=== PATIENT | male | born 1945 | race Two or more races ===

== ENCOUNTER → 2016-12-14 | Day surgery (SDC) | payer MEDICARE, MEDICAID ==
--- NOTE | 2016-12-10 17:07 | Pre-Procedure Note/Attestation ---
Pre-Procedure Note/Attestation Complete Prior to Procedure Planned Procedure: bilateral Procedure Narrative: 1- Ptosis correction, upper lids 2- Entropion correction upper lids 3- Blepharoplasty, upper lids Indications for Procedure Pre-Operative Diagnosis: 1- Ptosis ,upper lids 2- Entropion, upper lids 3- Blepharochalasis and dermatochalasis upper lids Attestation I attest that I discussed the nature of the procedure; its benefits; risks and complications; and alternatives (and the risks and benefits of such alternatives ), prior to the procedure, with the patient (or the patient's legal retail customer service representative). I attest that, if there was a reasonable possibility of needing a blood transfusion, the patient (or the patient's legal retail customer service representative) was given the [facility] standardized written summary, pursuant to the Sloan Mckay Blood Safety Act ([place] Health and Safety Code # 1645, as amended). I attest that I re-evaluated the patient just prior to the surgery and that there has been no change in the patient's H&P, except as documented below: LENA DIEZ Dec 10, 2016 17:07
[2016-12-14] VITALS (11 sets, daily range): BP systolic 124–139; BP diastolic 64–89
[~2016-12-14] VITALS: Ht 185.4 cm; Wt 81.6 kg
[~2016-12-14] MED LIST: ASPIRIN81 MG ORAL; ATORVASTATIN CA20 MG ORAL; Akten 3.5% 1ml Btl BOTH EYES ONE; Bupivacaine 0.75% 30ml vial INJ ONE; DiphenhydrAMINE 50mg/ml Inj IVP PRN; DiphenhydrAMINE 50mg/ml Inj ONE; LOSARTAN POTASS50 MG ORAL; LR 1000ml 1,000 ML IVLG SCH; Labetalol 5mg/ml 20ml vial IV PRN; Lidocaine 2% 20mg/ml/Epi 0.005mg/ml 20ml vial ONE; METOPROLOL SUCC25 MG ORAL; Maxitrol Opth Oint 3.5gm BOTH EYES ONE; NS Irrig 1000ml ONE; Povidone-Iodine 5% opth solution ONE; Propofol 10mg/ml 20ml IV ONE; Sterile Water Irrig 1000ml IRRIG ONE
--- NOTE | 2016-12-14 09:37 | Anethesia Preoperative Eval ---
Anesthesia Pre-op PMH/ROS General Date of Evaluation: Dec 14, 2016 Anesthesiologist: David ASA Score: ASA 3 Mallampati Score Class I : Soft palate, uvula, fauces, pillars visible Class II: Soft palate, uvula, fauces visible Class III: Soft palate, base of uvula visible Class IV: Only hard plate visible Mallampati Classification: Class II Surgeon: Vladimir Diagnosis: Bilateral eyelid ptosis Surgical Procedure: Bilateral blepharoplasty Anesthesia History: none Social History: current smoker Family History: no anesthesia problems Allergies: Coded Allergies: No Known Allergies (Unverified , 03/05/16) Medications: see eMAR Past Medical History Cardiovascular: Reports: CAD, HTN, [place], other - HLD Pulmonary: Denies: COPD, SYLVIA, asthma, other Gastrointestinal/Genitourinary: Reports: GERD, Denies: CRI, ESRD, other Neurologic/Psychiatric: Denies: CVA, TIA, dementia, depression/anxiety, other Endocrine: Denies: DM, hypothyroidism, other, steroids HEENT: Denies: NIKOLAI (L), NIKOLAI (R), cataract (L), cataract (R), glaucoma, other Hematology/Immune: Denies: DVT, anemia, bleeding disorder, other Musculoskeletal/Integumentary: Denies: DDD, DJD, OA, RA, edema, other PSxH Narrative: Right THR, right cataract Anesthesia Pre-op Phys. Exam Physician Exam Last Vital Signs Date Time Temp Pulse Resp B/P Pulse Ox O2 Delivery O2 Flow Rate FiO2 12/14/16 08:52 97.3 61 18 139/80 98 Room Air Constitutional: NAD Cardiovascular: RRR Respiratory: CTA Airway Exam Mallampati Score: Class III MO: full ROM: full Anesthesia Pre-op A/P Labs see chart Studies Pre-op Studies: EKG - sr Risk Assessment & Plan Assessment: ASA III Plan: MAC Status Change Before Surgery: No Pre-Antibiotics Drug: N/A JI ALVAREZ M.D. Dec 14, 2016 09:37
--- NOTE | 2016-12-14 11:47 | Immediate Post-Op Evaluation ---
Immediate Post-Op Evalulation Immediate Post-Op Evalulation Procedure: Bilateral blepharoplasty Date of Evaluation: Dec 14, 2016 Time of Evaluation: 11:49 IV Fluids: 500 Blood Products: 0 Estimated Blood Loss: 0 Urinary Output: 0 Blood Pressure Systolic: 133 Blood Pressure Diastolic: 75 Pulse Rate: 55 Respiratory Rate: 16 O2 Sat by Pulse Oximetry: 98 Temperature (Fahrenheit): 97 Pain Score (1-10): 0 Nausea: No Vomiting: No Complications 0 Patient Status: awake, reacts, patent, none Hydration Status: adequate Drug: N/a JI ALVAREZ M.D. Dec 14, 2016 11:47
--- NOTE | 2016-12-14 11:49 | Brief Operative Note ---
Immediate Post Operative Note Operative Note Chief Complaint: Droopy eyelids, difficulty driving and reading Pre-op Diagnosis: 1- Ptosis ,upper lids 2- Entropion, upper lids 3- Blepharochalasis and dermatochalasis upper lids Procedure: 1- Ptosis correction, upper lids 2- Entropion correction, upper lids 3- Upper blepharoplasty, bilaterally Surgeon: Lena Gilbert MD. Associate Software Application Engineer: None Additional Surgeons: None Anesthesiologist: Dr. Hernandez Anesthesia: local, MAC Specimen: none Complications: none Condition: stable Estimated Blood Loss: minimal Drains: none Implant(s) used?: No LENA GILBERT Dec 14, 2016 11:49
--- NOTE | 2016-12-14 21:27 | Operative Note - Dictated ---
DATE OF OPERATION: 12/14/2016 FACILITY: [facility]. SURGEON: Mg Gilbert M.D. LAB INSTRUCTOR: None. ANESTHESIOLOGIST: Dr. Hernandez. Anesthesia: Monitored anesthesia care plus local anesthesia with lidocaine 2% with epinephrine 1:100,000 plus Marcaine 0.25%, 50:50. PREOPERATIVE DIAGNOSES: 1. Ptosis, upper lids. 2. Entropion, upper lids. 3. Dermatochalasis, upper lids. 4. Outer ptosis and dermatochalasis bilaterally. POSTOPERATIVE DIAGNOSES: 1. Ptosis, upper lids. 2. Entropion, upper lids. 3. Dermatochalasis, upper lids. 4. Outer ptosis and dermatochalasis bilaterally. SURGERY PERFORMED: 1. Ptosis correction, upper lids. 2. Entropion correction, upper lids. 3. Blepharoplasty, upper lids. INDICATIONS FOR SURGERY: The patient is a 72-year-old gentleman with history of hypertension, coronary artery disease, dyslipidemia, history of myocardial infarction and hypercholesterolemia. He has gastroesophageal reflux and osteoarthritis as well. He is taking medications including metoprolol, atorvastatin, losartan, and aspirin. He has had cataract surgery in both eyes and he is happy with the results. He is complaining of fat and complaining of blurry vision and difficulty driving because of upper lid droopiness. He is suffering from severe blepharochalasis, ptosis, entropion and dermatochalasis. This is a progressive dermatochalasis with skin disease, which resulting changes of corneal curvature, which can induce astigmatism with covering of visual axis, which is interruption for driving. The severity of the patient's dermatochalasis, ptosis, entropion and ectropion is clearly demonstrated from an enclosed photos and the patient's visual parks. The only solution for this patient is correction of all those disfigurement and anatomy changes with surgery. INFORMED CONSENT: The nature of the surgery, risks, benefits, and potential complications were all explained in detail to the patient in his language Farsi. He voiced understanding and accepted all the complications. The potential complications including, but not limited to bleeding, infection, corneal exposure, over correction, under correction, ecchymosis swelling of the face, hematoma, dry eye syndrome, loss of eyelashes, loss of eyebrows, inequality of both eyes, change in vision, even loss of vision and loss of the eye were explained in detail to the patient, who voiced understanding and accepted all the complications. Then, he signed the consent form, which is in the chart. DESCRIPTION OF SURGERY AND FINDINGS: Following that, the patient was taken to the operation room in a stable condition. Lidocaine gel 3.5% was applied to the conjunctiva of both eyes. Following that, the upper lids were marked with a marking pen 10 mm above the root of the eyelashes and 6 mm below the lower part of the eyebrows. About 20 mm of the skin was left for facilitation to facilitate the eye closure. IV sedation was given by the anesthesiologist, Dr. Hernandez. After adequate anesthesia and sedation had been achieved, the upper eyelids, eyebrows, and lower eyelids were all anesthetized 2% lidocaine with epinephrine and Marcaine. Following that, using a Bovie knife, the skin and subdermal tissue were dissected from the orbicularis oculi muscle and excised. A cuts were made into the orbicularis oculi muscle. Hemostasis was performed. Following that, the fat compartments were sculptured conservatively. Following that, the levator palpebrae superioris muscle was dissected to the aponeurosis of the muscle. The aponeurosis of the muscle was tacked 6 mm and stitched with 6-0 Vicryl and the sutures were trimmed. Following that, a wedge groove was made 3 mm above the root of the upper eyelashes. Following that, the tarsal plate was grooved. The tarsal material seen inside the groove was excised. The lips of the groove was stitched with 6-0 Vicryl and the eyelid border was rotated upward and lashes were turned from downward to upward. Following that, the orbicularis oculi muscle was stitched. Following that, the skin was stitched with 6-0 plain gut. The patient tolerated the surgery without complications. The bleeding was minimal. Following the, the patient was transferred to the recovery room. In the recovery room, cold compress was applied to the area. The wound was checked for leakage or bleeding. There was no bleeding. Postoperative orders and directions were given to the patient. The patient will be discharged home upon stabilization. The patient will be followed in my office tomorrow morning. Mg Gilbert M.D. DR: WENDY JOB#: [id number] CC:
[2016-12-16 07:11] VITALS: BP 128/89
--- NOTE | 2016-12-16 07:11 | 48 Hour Post Anesthesia Eval ---
Post Anesthesia Evaluation Procedure: Bilateral blepharoplasty Date of Evaluation: Dec 14, 2016 Time of Evaluation: 13:15 Blood Pressure Systolic: 128 0: 89 Pulse Rate: 58 Respiratory Rate: 18 Temperature (Fahrenheit): 97.7 O2 Sat by Pulse Oximetry: 97 Airway: patent Nausea: No Vomiting: No Pain Intensity: 0 Hydration Status: adequate Cardiopulmonary Status: at baseline Mental Status/LOC: patient returned to baseline Post-Anesthesia Complications: 0 Follow-up care needed: ready to discharge JI ALVAREZ M.D. Dec 16, 2016 07:11
== END | disposition home or self-care (01) ==
LOC: SUR 08:20
DX: H02.403 Unspecified ptosis of bilateral eyelids (principal); H02.034 Senile entropion of left upper eyelid; H02.031 Senile entropion of right upper eyelid; H02.834 Dermatochalasis of left upper eyelid; H02.831 Dermatochalasis of right upper eyelid; H02.34 Blepharochalasis left upper eyelid; H02.31 Blepharochalasis right upper eyelid; I25.10 Atherosclerotic heart disease of native coronary artery without angina pectoris; I25.2 Old myocardial infarction; I10 Essential (primary) hypertension; E78.5 Hyperlipidemia, unspecified; K21.9 Gastro-esophageal reflux disease without esophagitis; F17.200 Nicotine dependence, unspecified, uncomplicated; Z96.641 Presence of right artificial hip joint
CPT/HCPCS: 94003; 94150